=== PATIENT | male | born 1960 ===

== ENCOUNTER → 2016-09-23 | Outpatient (CLI) | payer OTHER ==
--- NOTE | 2016-09-23 19:03 | RADIOLOGY REPORT (SQ) ---
EXAM DESCRIPTION: PARANASAL SINUSES COMPLETED DATE/TIME: 09/23/2016 4:57 pm REASON FOR STUDY: RHINITIS J31.0 CHRONIC RHINITIS COMPARISON: None. NUMBER OF VIEWS: Four views. TECHNIQUE: Images of the paranasal sinuses acquired. LIMITATIONS: None. FINDINGS: ORBITS: No fracture. No foreign body. SINUSES: There is a prominent air-fluid level in the left maxillary sinus. FACIAL BONES: No fracture. OTHER: No other significant finding. IMPRESSION: Left maxillary sinus disease. TECHNICAL DOCUMENTATION: JOB ID: [id number] [employer]- All Rights Reserved
== END ==
LOC: OD 16:42
PROVIDERS: ATTEND Allergy & Immunology
DX: J31.0 Chronic rhinitis (principal)
CPT/HCPCS: 70220